=== PATIENT | female | born 1995 | race Caucasian/White ===

== ENCOUNTER 2017-01-07 14:17 | Emergency (ER) | payer SELFPAY ==
[2017-01-07 14:37] VITALS: BP 127/99
[2017-01-07] MEDS ORDERED: PENICILLIN V POTASSIUM 500 MG TABLET PO ONE (17:02)
[2017-01-07] MEDS ORDERED: BUPIVACAINE HCL 0.5 % INJ/PF 30 ML SDV INJ ONE (17:02)
[2017-01-07] MEDS ORDERED: TRAMADOL HCL 50 MG TABLET PO ONE (17:02)
--- NOTE | 2017-01-07 17:02 | ER Document Report ---
ED Oral Problem - General Chief Complaint: Toothache Stated Complaint: TOOTH PAIN Time Seen by Provider: 01/07/17 16:45 TRAVEL OUTSIDE OF THE [place] IN LAST 30 DAYS: No - HPI Patient complains to provider of: Toothache - left upper wisdom tooth Onset: This morning Onset: Sudden Quality of pain: Achy, Throbbing Severity: Severe Pain Level: 5 Context: denies: Recent antibiotic use, Recent dental extractions Associated symptoms: None Relieved by: Nothing Similar symptoms previously: Yes Recently seen / treated by doctor/dentist: No - Related Data Allergies/Adverse Reactions: No Known Allergies Allergy (Unverified 01/07/17 16:50) Past Medical History - Social History Smoking Status: Current Every Day Smoker Family History: Reviewed & Not Pertinent Patient has suicidal ideation: No Patient has homicidal ideation: No Renal/ Medical History: Denies: Hx Peritoneal Dialysis Surgical Hx: Negative Review of Systems - Review of Systems Constitutional: No symptoms reported EENT: See HPI Cardiovascular: No symptoms reported Respiratory: No symptoms reported -: Yes All other systems reviewed and negative Physical Exam - Vital signs Vitals: Temp Pulse Resp BP Pulse Ox 97.3 F 107 H 20 127/99 H 100 01/07/17 14:34 01/07/17 14:34 01/07/17 14:34 01/07/17 14:34 01/07/17 14:34 - Notes Notes: PHYSICAL EXAM GENERAL: Alert, interacts well. ENT: Tenderness over tooth #16 without any evidence of abscess, fracture. Oral mucosa moist, tongue midline. Uvula midline. Airway patent. No evidence of tonsillar enlargement, peritonsillar abscess, retropharyngeal abscess. NECK: Full range of motion. Supple. Trachea midline. LUNGS: Clear to auscultation bilaterally, no wheezes, rales, or rhonchi. No respiratory distress. HEART: Regular rate and rhythm. No murmurs, gallops, or rubs. NEUROLOGICAL: Alert and oriented x4. Normal speech. PSYCH: Normal affect, normal mood. SKIN: Warm, dry, normal turgor. No rashes or lesions noted. Course - Re-evaluation Re-evalutation: 01/07/17 17:32 Presentation is most consistent with likely an infected tooth. Airway is patent. Vitals within normal limits. Patient is able swallow without any difficulty. There is no significant facial swelling. Patient will be started on antibiotics and a limited number of pain medications. I've instructed to follow-up with dentistry as earliest ability for definitive management. Return precautions and follow-up recommendations have been discussed at length. Patient eloped prior to receiving medications and discharge paperwork. - Vital Signs Vital signs: Temp Pulse Resp BP Pulse Ox 97.3 F 107 H 20 127/99 H 100 01/07/17 14:34 01/07/17 14:34 01/07/17 14:34 01/07/17 14:34 01/07/17 14:34 Discharge - Discharge Clinical Impression: Toothache Condition: Good Disposition: ELOPED
== END 2017-01-07 17:14 | disposition left against medical advice (07) ==
LOC: ER 14:17
DX: K08.89 Other specified disorders of teeth and supporting structures (principal); F17.200 Nicotine dependence, unspecified, uncomplicated
CPT/HCPCS: 99281